=== PATIENT | female | born 1975 | race Two or more races ===

== ENCOUNTER 2019-10-21 09:32 | Inpatient (IN) | payer SELFPAY ==
[~2019-10-21] VITALS: Ht 149.9 cm; Wt 76.2 kg
[2019-10-21] MEDS ORDERED: RA MED (09:43)
[2019-10-21 09:54] LABS: BASOPHILS 0.1 % (0-2); EOSINOPHILS 1.7 % (0-7); HEMATOCRIT 39.9 % (36.0-48.0); HEMOGLOBIN 12.7 g/dL (12-16); IMMATURE GRANULOCYTES 0.3 % (0-5); MCH 27.2 pg (26.0-34.0); MCHC 31.8 g/dL (31.0-37.0); MCV 85.4 fL (80.0-100.0); MEAN PLATELET VOLUME 8.6 fL (7.4-10.4); NEUTROPHILS 76.9 % (40-80); PLATELET COUNT 262 10x3/uL (130-400); RBC 4.67 10x6/uL (4.00-5.40); RDW 15.7 % (11.5-14.5); WBC 10.9 10x3/uL (4.8-10.8)
[2019-10-21 10:04] LABS: TROPONIN-I 0.019 ng/mL (0.000-0.060)
[2019-10-21 11:31] LABS: ALBUMIN 3.3 g/dL (3.4-5.0); ALKALINE PHOSPHATASE 59 U/L (46-116); ALT (SGPT) 60 U/L (10-68); BILIRUBIN - TOTAL 0.33 mg/dL (0.2-1.3); CALC OSMOLALITY 283 mosm/kg (275-300); CALCIUM 8.7 mg/dL (8.5-10.1); CARBON DIOXIDE 30.9 mmol/L (21.0-32.0); CHLORIDE - SERUM 106 mmol/L (98-107); CREATININE - SERUM 0.7 mg/dL (0.6-1.3); GLUCOSE 95 mg/dL (74-106); POTASSIUM - SERUM 3.7 mmol/L (3.5-5.1); PROTEIN - SERUM 7.2 g/dL (6.4-8.2); SODIUM 143 mmol/L (136-145); UREA NITROGEN 10 mg/dL (7-18); eGFR NON AFRICAN AMERICAN > 90 mL/min (90-120)
--- NOTE | 2019-10-21 15:30 | NUR ---
HAND OFF REPORT RECEIVED FROM OFF GOING RN, INES ALCALA
--- NOTE | 2019-10-21 15:32 | NUR ---
ORDERED MEFOXIN COMPLETE AT 1525.
--- NOTE | 2019-10-21 16:08 | NUR ---
URINE SAMPLE SENT TO LAB AT THIS TIME.
[2019-10-21 16:29] LABS: APPEARANCE HAZY (CLEAR); BILIRUBIN NEGATIVE (NEGATIVE); COLOR YELLOW (YELLOW); GLUCOSE NEGATIVE (NEGATIVE); KETONE NEGATIVE (NEGATIVE); NITRITE NEGATIVE (NEGATIVE); PROTEIN TRACE mg/dL (NEGATIVE); UROBILINOGEN NORMAL (NORMAL)
[2019-10-21 16:32] LABS: BACTERIA FEW /hpf (NEGATIVE); EPITHELIAL CELLS 0-5 /hpf (0-5); HCG URINE NEGATIVE (NEGATIVE); RED CELLS - URINE >50 /hpf (0-5); WHITE CELLS - URINE 0-5 /hpf (NEGATIVE)
--- NOTE | 2019-10-21 17:00 | NUR ---
RECEIVED TO ROOM 2206 VIA FROM ER. A/O X3. FAMILY AT BEDSIDE. NO C/O AT THIS TIME. SKIN INTACT WTIHOUT REDNESS.
[2019-10-21 17:16] VITALS: BP 113/63; BMI 34.0
[2019-10-21] MEDS ORDERED: FOLIC ACID1 MG PO (17:23)
[2019-10-21] MEDS ORDERED: METHOTREXATE2.5 MG PO (17:24)
[2019-10-21] MEDS ORDERED: PREDNISONE5 MG PO (17:25)
[2019-10-21] MEDS ORDERED: PEPCID AC20 MG PO (17:26)
--- NOTE | 2019-10-21 19:27 | NUR ---
REFUSED FL SUPPER. FAMILY AT BEDSIDE. NO CHANGES NOTED. DENIES NEEDS.
[2019-10-22 05:13] LABS: BASOPHILS 0.1 % (0-2); EOSINOPHILS 0.7 % (0-7); HEMATOCRIT 34.6 % (36.0-48.0); HEMOGLOBIN 11.2 g/dL (12-16); IMMATURE GRANULOCYTES 0.3 % (0-5); MCH 27.7 pg (26.0-34.0); MCHC 32.4 g/dL (31.0-37.0); MCV 85.6 fL (80.0-100.0); MEAN PLATELET VOLUME 8.5 fL (7.4-10.4); MONOCYTES 8.4 % (2-11); NEUTROPHILS 80.5 % (40-80); PLATELET COUNT 258 10x3/uL (130-400); RBC 4.04 10x6/uL (4.00-5.40); RDW 15.9 % (11.5-14.5)
[2019-10-22 05:27] LABS: APTT 31.8 SECONDS (22.8-39.4); INR 1.1 (0.85-1.17); PROTIME 14.2 SECONDS (11.6-15.0)
[2019-10-22 05:47] LABS: ALBUMIN 2.7 g/dL (3.4-5.0); ALKALINE PHOSPHATASE 60 U/L (46-116); BILIRUBIN - TOTAL 0.55 mg/dL (0.2-1.3); CALCIUM 7.9 mg/dL (8.5-10.1); CARBON DIOXIDE 26.6 mmol/L (21.0-32.0); CHLORIDE - SERUM 105 mmol/L (98-107); CREATININE - SERUM 0.8 mg/dL (0.6-1.3); GLUCOSE 107 mg/dL (74-106); MAGNESIUM - SERUM 1.7 mg/dL (1.8-2.4); PHOSPHOROUS 3.3 mg/dL (2.5-4.9); POTASSIUM - SERUM 3.5 mmol/L (3.5-5.1); PROTEIN - SERUM 6.2 g/dL (6.4-8.2); SODIUM 139 mmol/L (136-145); eGFR NON AFRICAN AMERICAN 82 mL/min (90-120)
[2019-10-22 05:49] LABS: ALT (SGPT) 156 U/L (10-68); CALC OSMOLALITY 275 mosm/kg (275-300); UREA NITROGEN 7 mg/dL (7-18)
--- NOTE | 2019-10-22 06:50 | NUR ---
ALERT AND ORIENTED, RESTING IN BED WITH EYES OPEN. NO C/O PAIN. NO S/S OF ACUTE DISTRESS NOTED. SPEAKS LITTLE THAI. NPO AFTER MIDNIGHT FOR CHOLECYSTECTOMY. SCDS PRESENT. IV TO RIGHT AC, NS INFUSING @ 125ML/HR. SITE PATENT WITHOUT REDNESS OR SWELLING. MAG 1.7 THIS AM, FOLLOWING ELECTROLYTE PROTOCOL. DENIES ANY NEEDS AT THIS TIME. CALL LIGHT IN REACH. WILL CONTINUE TO MONITOR.
[2019-10-22 09:25] VITALS: BP 112/70
--- NOTE | 2019-10-22 13:12 | NUR ---
LYING ON RIGHT SIDE. PT IS WITHOUT DISTRESS.
[2019-10-22 13:20] VITALS: BP 123/66
[2019-10-22 13:40] VITALS: Ht 149.9 cm; Wt 76.2 kg
[2019-10-22 17:18] VITALS: BP 109/64
--- NOTE | 2019-10-22 19:10 | NUR ---
PATIENT LYING DOWN IN BED. PATIENT SPEAKS DIVEHI AND DOES NOT SPEAK MUCH UZBEK. PATIENT STATES HER PAIN IS ABOUT A 6/10, BUT SHE HAS NO NEEDS AT THIS TIME. IV IN L FA, NS @125. ROOM AIR. BED RAILS X2. CALL LIGHT AND BEDSIDE TABLE WITHIN REACH.
--- NOTE | 2019-10-22 19:14 | NUR ---
ALERT AND ORIENTED, RESTING IN BED EYES OPEN. NO C/O PAIN. NO S/S OF ACUTE DISTRESS NOTED. DENIES ANY NEEDS AT THIS TIME. CALL LIGHT IN REACH. WILL CONTINUE TO MONITOR.
[2019-10-22 19:30] VITALS: BP 113/66
[2019-10-23 00:30] VITALS: BP 110/68
[2019-10-23 05:30] VITALS: BP 104/63
[2019-10-23 06:01] LABS: BASOPHILS 0.2 % (0-2); EOSINOPHILS 1.3 % (0-7); HEMATOCRIT 33.9 % (36.0-48.0); HEMOGLOBIN 10.6 g/dL (12-16); IMMATURE GRANULOCYTES 0.3 % (0-5); LYMPHOCYTES 7.8 % (15-50); MCHC 31.3 g/dL (31.0-37.0); MCV 86.5 fL (80.0-100.0); MEAN PLATELET VOLUME 8.9 fL (7.4-10.4); MONOCYTES 8.7 % (2-11); NEUTROPHILS 81.7 % (40-80); PLATELET COUNT 260 10x3/uL (130-400); RBC 3.92 10x6/uL (4.00-5.40); WBC 11.9 10x3/uL (4.8-10.8)
[2019-10-23 06:34] LABS: ALBUMIN 2.5 g/dL (3.4-5.0); BILIRUBIN - TOTAL 0.58 mg/dL (0.2-1.3); CARBON DIOXIDE 20.4 mmol/L (21.0-32.0); MAGNESIUM - SERUM 1.9 mg/dL (1.8-2.4); PHOSPHOROUS 2.7 mg/dL (2.5-4.9); POTASSIUM - SERUM 3.4 mmol/L (3.5-5.1); PROTEIN - SERUM 6.2 g/dL (6.4-8.2)
[2019-10-23 06:57] LABS: HEPATITIS C ANTIBODY <0.1 S/CO RAT (0.0-0.9)
[2019-10-23 09:38] VITALS: BP 103/62
--- NOTE | 2019-10-23 10:00 | NUR ---
PT TAKEN TO PREOP VIA BED. NO ACUTE DISTRESS NOTED
[2019-10-23] MEDS ORDERED: HYDROCODON-ACE1 EAC7 PO (12:14)
--- NOTE | 2019-10-23 13:15 | NUR ---
PT RETURNED FROM RECOVERY VIA BED. EASILY AWAKENS. DENIES PAIN AT THIS TIME. CL WITHIN REACH.
[2019-10-23 13:17] VITALS: BP 109/66
--- NOTE | 2019-10-23 13:33 | MORECARE ---
CASE MANAGEMENT DISCHARGE SUMMARY PATIENT: JERAD MORE UNIT: [id number] ADM DATE: 10/21/19 AGE: 44 : [birth year] SEX: F ROOM/BED: D.2206 AUTHOR: FRANCIS,DOC PHYSICIAN: REFERRING PHYSICIAN: GAEL APONTE MD DATE OF SERVICE: 10/23/19 Discharge Plan Patient Name: JERAD MORE Facility: [facility]:[place] : 1975 Planned Disposition: Home Anticipated Discharge Date: Discharge Date: Expected LOS: Initial Reviewer: [email or web address] Initial Review Date: 10/21/2019 Generated: 10/23/19 2:33 pm Comments DCP- Discharge Planning Updated by [email or web address]: Sarah Torres on 10/23/19 12:[address] Patient Name: EJRAD MORE Encounter No: [id number] : 1975 Primary Insurance: UNINSURED DISCOUNT PLAN Anticipated DC Date: Planned Disposition: Home External Planned Provider: : DCP follow-up note: Patient and family in agreement with discharge plan. No changes to plan. Case management will follow and assist as needed. Sarah Torres DCP- Discharge Planning Updated by [email or web address]: Maris Mishra on 10/21/19 1:[address] CM met with patient to discuss initial discharge planning. Patient is in agreement to proceed with the assessment with he daughter, Vivi Aburto present. Patient is NAMIBIAN SPEAKING ONLY. Patient's daughter interprets. Patient is alert/oriented. Patient lives in [place] with her family. Stairs/steps: 6 w/rails. PCP: Dr. Polk with [facility] Pharmacy: [facility] and [facility]. Patient states they have been able to obtain all of their prescribed medications. Patient lives with family, daughter. HHS: No. DME: No. Patient gives permission to speak with family members/care givers. Emergency contact: Vivi Aburto (dtr) [phone] of the home and Constance Aburto (dtr) [phone] outside the home. Patient is Independent with all ADL's, medication management. CM discussed the availability of HH, Rehab, DME services. Patient denies the need for additional services at this time and feels safe returning to previous environment. Patient denies being hospitalized within the past 30 days. 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 Transportation at time of discharge: Vivi Aburto (dtr). CM will assist PRN with dc needs. Patient Name: JERAD MORE Page [id number] at 1333 All edits/amendments must be made on the electronic document DICTATION DATE: 10/23/191332 FINISHER MERCHANT PRODUCTS: KEENAN 10/23/19 1333 RPT#: [id number] DC DATE: STATUS: ADM IN [facility] [address] [place] [address] END OF REPORT
[2019-10-23] MEDS ORDERED: LEVOFLOXACIN500 MG PO (21:28)
--- NOTE | 2019-10-25 08:30 | MORECARE ---
CASE MANAGEMENT DISCHARGE SUMMARY PATIENT: JERAD MORE UNIT: [id number] ADM DATE: 10/21/19 AGE: 44 : [birth year] SEX: F ROOM/BED: D.2206 AUTHOR: FRANCIS,DOC PHYSICIAN: REFERRING PHYSICIAN: GAEL APONTE MD DATE OF SERVICE: 10/25/19 Discharge Plan Patient Name: JERAD MORE Facility: [facility]:[place] : 1975 Planned Disposition: Home Anticipated Discharge Date: Discharge Date: 10/23/2019 Expected LOS: Initial Reviewer: [email or web address] Initial Review Date: 10/21/2019 Generated: 10/25/19 9:29 am Comments DCP- Discharge Planning Updated by [email or web address]: Sarah Torres on 10/23/19 12:[address] Patient Name: JERAD MORE Encounter No: [id number] : 1975 Primary Insurance: UNINSURED DISCOUNT PLAN Anticipated DC Date: Planned Disposition: Home External Planned Provider: : DCP follow-up note: Patient and family in agreement with discharge plan. No changes to plan. Case management will follow and assist as needed. Sarah Torres DCP- Discharge Planning Updated by [email or web address]: Maris Mishra on 10/21/19 1:[address] CM met with patient to discuss initial discharge planning. Patient is in agreement to proceed with the assessment with he daughter, Vivi Aburto present. Patient is BULGARIAN SPEAKING ONLY. Patient's daughter interprets. Patient is alert/oriented. Patient lives in [place] with her family. Stairs/steps: 6 w/rails. PCP: Dr. Polk with [facility]. Pharmacy: [facility]. Patient states they have been able to obtain all of their prescribed medications. Patient lives with family, daughter. HHS: No. DME: No. Patient gives permission to speak with family members/care givers. Emergency contact: Vivi Lamonte (dtr) [phone] of the home and Constance Lamonte (dtr) [phone] outside the home. Patient is Independent with all ADL's, medication management. CM discussed the availability of HH, Rehab, DME services. Patient denies the need for additional services at this time and feels safe returning to previous environment. Patient denies being hospitalized within the past 30 days. 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 Transportation at time of discharge: Viiv Aburto (dtr). CM will assist PRN with dc needs. Last DP export: 10/23/19 12:33 p Patient Name: JERAD MORE Page [id number] at 0830 All edits/amendments must be made on the electronic document DICTATION DATE: 10/25/19828 FONDANT MACHINE OPERATOR: KEENAN 10/25/19828 RPT#: [id number] DC DATE:10/23/19 STATUS: DIS IN [facility] [address] [place] [address] END OF REPORT
== END 2019-10-23 19:22 | disposition home or self-care (01) | DRG 418 ==
LOC: D.ER 09:32 → D.MS 11:40
PROVIDERS: Family Medicine; Surgery; ADMIT Internal Medicine Nephrology; ATTEND Internal Medicine Nephrology
PROC: 0FT44ZZ Resection of Gallbladder, Percutaneous Endoscopic Approach (ICD-10-PCS; principal; 2019-10-23 10:15)
DX: K81.0 Acute cholecystitis (principal); N39.0 Urinary tract infection, site not specified; R91.1 Solitary pulmonary nodule; R74.0 Nonspecific elevation of levels of transaminase and lactic acid dehydrogenase [LDH]; M06.9 Rheumatoid arthritis, unspecified